=== PATIENT | male | born 1980 | race Two or more races ===

== ENCOUNTER 2024-10-14 18:56 | Emergency (ER) | payer MEDICAID, OTHER ==
[~2024-10-14] VITALS: Ht 180.3 cm; Wt 119.1 kg
[~2024-10-14 18:56] MED LIST: ATOR-47 PO
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
[2024-10-14 22:55] VITALS: BP 157/97; PULSE 89; RESP 14; TEMP 97.9; O2SAT 97
[2024-10-14] MEDS: ACETAMINOPHEN 325 MG TAB PO ONE (22:55)
--- NOTE | 2024-10-16 09:05 | ECG ---
[facility] Test Date: 2024-10-14 Test Time: 19:27:34 Pat Name: JADEN PIERRE Department: ED Room: Gender: M Certified Orthotist: ed : 1980 Requested By: FRANCO CABRERA Order Number: [id number] Reading MD: Bronson Lord Measurements Intervals [place] Rate: 108 P: 49 VT: 146 QRS: 143 QRSD: 96 T: -8 QT: 318 QTc: 426 Interpretive Statements Sinus tachycardia Consider right ventricular hypertrophy Borderline T abnormalities, inferior leads ST elevation, consider lateral injury Electronically Signed On 10-16-2024 14:05:03 PDT by Bronson Lord Please click the below link to view image of tracing.
== END 2024-10-14 22:57 | disposition home or self-care (01) ==
LOC: EDBD 18:56 → ER 19:09
DX: S86.212A Strain of muscle(s) and tendon(s) of anterior muscle group at lower leg level, left leg, initial encounter (principal); S60.512A Abrasion of left hand, initial encounter; R07.89 Other chest pain; M54.2 Cervicalgia; M79.18 Myalgia, other site; I10 Essential (primary) hypertension; E66.9 Obesity, unspecified; E78.5 Hyperlipidemia, unspecified; Z79.899 Other long term (current) drug therapy; Z90.49 Acquired absence of other specified parts of digestive tract; V43.52XA Car driver injured in collision with other type car in traffic accident, initial encounter; Y93.I9 Activity, other involving external motion; Y92.488 Other paved roadways as the place of occurrence of the external cause; Y99.8 Other external cause status
CPT/HCPCS: 70450; 71045; 73130; 73590; 93005